=== PATIENT | male | born 1945 | race Caucasian/White ===

== ENCOUNTER → 2020-12-17 | Day surgery (SDC) | payer MEDICARE ==
[~2020-12-17] MED LIST: ASPIRIN 325MG325 MG PO; BUMETANIDE1 MG PO; CEPHALEXIN500 M1 PO; CITALOPRAM HBR20 MG PO; CLINDAMYCIN HC300 MG PO; COZAAR25 MG PO; ECONAZOLE NIT 130 GM TP; ENTRESTO 49 MG1 EACH PO; FAMOTIDINE20 MG PO; FLUCONAZOLE100 MG PO; FLUCONAZOLE150 MG PO; FUROSEMIDE20 MG PO; GLIMEPIRIDE4 MG PO; KLONOPIN1 MG PO; KLOR-CON M2020 MEQ PO; LOSARTAN-HCTZ1 EAC2 PO; METOPROLOL SUCC25 MG PO; METOPROLOL TART25 MG PO; NITROSTAT0.4 MG SL; ONDANSETRON HCL8 MG PO; PHENERGAN 25 MG25 M1 PO; POTASSIUM CHLO20 ME1 PO; PROZAC20 MG PO; RANEXA1000 MG PO; SULFAMETHOXAZO1 EACH PO; TESTOSTERON100 MG/ML IM; VITAMIN B-121000 MC3 PO; VOLTAREN ARTHRI20 GM TOP; VYZULTA EYEBOTH
== END | disposition home or self-care (01) ==
LOC: OR 06:01
DX: K31.9 Disease of stomach and duodenum, unspecified (principal); I25.10 Atherosclerotic heart disease of native coronary artery without angina pectoris; I70.219 Atherosclerosis of native arteries of extremities with intermittent claudication, unspecified extremity; E78.5 Hyperlipidemia, unspecified; I11.0 Hypertensive heart disease with heart failure; I50.1 Left ventricular failure, unspecified; I25.2 Old myocardial infarction; E11.9 Type 2 diabetes mellitus without complications; E66.01 Morbid (severe) obesity due to excess calories; Z95.5 Presence of coronary angioplasty implant and graft; Z87.891 Personal history of nicotine dependence; Z68.41 Body mass index [BMI] 40.0-44.9, adult; Z88.5 Allergy status to narcotic agent; Z88.8 Allergy status to other drugs, medicaments and biological substances; Z79.82 Long term (current) use of aspirin; Z79.84 Long term (current) use of oral hypoglycemic drugs; Z79.899 Other long term (current) drug therapy
CPT/HCPCS: 82962; J2704; J7030